=== PATIENT | female | born 1985 | race Two or more races ===

== ENCOUNTER 2017-06-09 12:18 | Emergency (ER) | payer MEDICAID ==
[~2017-06-09] VITALS: Ht 162.6 cm; Wt 59.0 kg
--- NOTE | 2017-06-09 12:35 | NUR ---
DR SHORE AT BEDSIDE FOR EVAL.
--- NOTE | 2017-06-09 12:57 | NUR ---
COMMUNITY SERVICE REPRESENTATIVE AT BEDSIDE FOR BLOOD DRAW.
--- NOTE | 2017-06-09 13:00 | NUR ---
LAB CALLED. PT NOT RHOGAM CANDIDATE. ERMD AWARE.
[2017-06-09 13:01] LABS: BASOPHILS # (AUTO) 0.1 /CMM (0.0-0.2); BASOPHILS % (AUTO) 0.9 % (0.0-2.0); EOSINOPHILS # (AUTO) 0.1 /CMM (0.0-0.7); EOSINOPHILS % (AUTO) 0.9 % (0.0-6.0); HEMATOCRIT 40 % (33-45); HEMOGLOBIN 13.5 g/dL (11.5-14.8); LYMPHOCYTES # (AUTO) 1.3 /CMM (0.8-4.8); LYMPHOCYTES % (AUTO) 22.5 % (20.0-44.0); MEAN CORPUSCULAR HEMOGLOBIN 29 PG (26.0-33.0); MEAN CORPUSCULAR HGB CONC 34 g/dl (31.0-36.0); MEAN CORPUSCULAR VOLUME 84 fL (82-100); MONOCYTES # (AUTO) 0.2 /CMM (0.1-1.30); MONOCYTES % (AUTO) 3.9 % (2.0-12.0); NEUTROPHILS # (AUTO) 4.1 /CMM (1.8-8.9); NEUTROPHILS % (AUTO) 71.8 % (43.0-81.0); PLATELET COUNT (AUTO) 257 /CMM (150-450); RDW COEFFICIENT OF VARIATION 12.9 (11.5-15.0); RED BLOOD CELL COUNT(AUTO) 4.69 MIL/uL (4.0-5.2); WHITE BLOOD COUNT (AUTO) 5.8 K/uL (4.3-11.0)
[2017-06-09 13:14] LABS: CREATININE 0.7 mg/dL (0.6-1.3)
[2017-06-09 13:16] LABS: INR 0.91 (0.85-1.15)
--- NOTE | 2017-06-09 14:39 | NUR ---
DR. ANNETTE ESCOTO. ON-CALL FOR DR. SOLIS [phone]
[2017-06-09 15:36] VITALS: BP 120/76
--- NOTE | 2017-06-09 15:36 | NUR ---
Patient discharged to home in stable condition. Written and verbal after care instructions given. Patient verbalizes understanding of instruction.
== END 2017-06-09 15:37 | disposition home or self-care (01) ==
LOC: ER 12:24
DX: O26.891 Other specified pregnancy related conditions, first trimester (principal); R10.2 Pelvic and perineal pain; Z3A.01 Less than 8 weeks gestation of pregnancy
CPT/HCPCS: 36415; 76856-TC; 80048-TC; 84144; 84702-TC; 85025-TC; 85730-TC; A4606; Z7610

== ENCOUNTER 2017-06-12 11:16 | Emergency (ER) | payer MEDICAID ==
[~2017-06-12] VITALS: Ht 162.6 cm; Wt 59.0 kg
[2017-06-12 11:20] VITALS: BP 112/70
== END 2017-06-12 13:49 | disposition home or self-care (01) ==
LOC: ER 11:18
DX: O26.891 Other specified pregnancy related conditions, first trimester (principal); Z90.89 Acquired absence of other organs; Z3A.01 Less than 8 weeks gestation of pregnancy
CPT/HCPCS: 36415; 76856-TC; 84702-TC; A4606; Z7610